=== PATIENT | male | born 1960 | race Caucasian/White ===

== ENCOUNTER 2023-05-05 06:49 | Day surgery (SDC) | payer BC ==
[~2023-05-05] VITALS: Ht 175.3 cm; Wt 161.0 kg
[2023-05-05] MEDS ORDERED: MEPERIDINE 100 MG INJ. 100 MG/ML VIAL ONE ×2 (07:18→08:35)
[2023-05-05] MEDS ORDERED: MIDAZOLAM HCL 5 MG/5 ML VIAL ONE ×2 (07:19→08:35)
[2023-05-05 14:02] VITALS: O2SAT 98
[2023-05-05 14:37] VITALS: BP_SYST 128; PULSE 62; RESP 16
== END 2023-05-05 09:53 | disposition home or self-care (01) ==
LOC: SDS 06:49 → SMU 07:05 → SDS 09:53
PROVIDERS: ATTEND Student in an Organized Health Care Education/Training Program
DX: Z12.11 Encounter for screening for malignant neoplasm of colon (principal); K62.1 Rectal polyp; K57.30 Diverticulosis of large intestine without perforation or abscess without bleeding; K64.8 Other hemorrhoids; I10 Essential (primary) hypertension; E11.9 Type 2 diabetes mellitus without complications; E78.5 Hyperlipidemia, unspecified; E66.9 Obesity, unspecified; Z87.891 Personal history of nicotine dependence; Z79.84 Long term (current) use of oral hypoglycemic drugs; Z79.899 Other long term (current) drug therapy; Z68.43 Body mass index [BMI] 50.0-59.9, adult
CPT/HCPCS: 45385; 82948; 88305; 99152; 99153; G0378; J2250; J2175; 45382